=== PATIENT | female | born 1950 | race Caucasian/White ===

== ENCOUNTER → 2017-04-04 | Outpatient (CLI) | payer BC ==
[~2017-04-04] MED LIST: ALDACTONE 25MG25 M1 PO; ALENDRONATE SOD35 M1 PO; ASPIR-LOX325 MG PO; ASPIRIN 32325 MG/TAB PO; BYSTOLIC5 MG PO; CALCIUM1 CAP PO; CEFTIN500 MG PO; COMPLEXED POTAS99 MG PO; COUMADIN 1MG1 MG/TAB PO; COUMADIN10 MG PO; FISH OIL1000 MG PO; FOSAMAX 70MG TA70 MG PO; FOSAMAX PO; LEVOTHROID0.05 MG PO; LEVOXYL0.05 MG PO; LIPITOR80 MG PO; LISINOPRIL2.5 MG PO; LOVENOX100 MG/ML SC; LOW DOSE ASPIRI81 MG PO; MAX-EPA1000 MG PO; METOPROLOL50 MG PO; NAPROXEN D/R500 MG PO; NORCO 325 MG-51 TAB PO; PERCOCET 500 MG1 TAB PO; PLAVIX 75MG TAB75 MG PO; POTASSIUM1 PDS PO; TRIAMTERENE/HCT1 TAB PO; ZINC SULFATE 111 TAB PO; ZOFRAN 4MG T4 MG/TAB PO; [UNRECOGNIZED DRUG - OTHER]; [UNRECOGNIZED DRUG - OTHER] PO
== END ==
LOC: MC.RAD 03-22 07:00
DX: Z12.31 Encounter for screening mammogram for malignant neoplasm of breast (principal)

== ENCOUNTER → 2018-09-25 | Outpatient (CLI) | payer BC | LOC: MC.RAD 15:27 | DX: Z12.31 Encounter for screening mammogram for malignant neoplasm of breast (principal) ==

== ENCOUNTER 2019-12-24 11:37 | Emergency (ER) | payer BC ==
[~2019-12-24] VITALS: Ht 162.6 cm; Wt 72.7 kg
[2019-12-24 12:56] LABS: BASO % 0.4 % (0.0-2.0); EOS # 0.1 (0.0-0.7); EOS % 0.6 % (0-4.0); GRAN # 5.9 (1.4-6.5); HEMATOCRIT 43.1 % (37.0-47.0); HEMOGLOBIN 14.4 g/dl (12.5-16.0); LYMPH # 1.3 (1.2-3.4); LYMPH % 16.3 % (20.0-51.0); MEAN CELL VOLUME 98 fl (80.0-100.0); MEAN CORPUSCULAR HEMOGLOBIN 33 pg (27.0-31.0); MEAN CORPUSCULAR HGB CONC 33 g/dl (33.0-37.0); MEAN PLATELET VOLUME 8.7 fl (7.4-10.4); MONO # 0.8 (0.1-0.6); MONO % 10.1 % (1.7-9.3); PLATELET COUNT 225 K/mm3 (130-400); REDCELL DISTRIBUTION WIDTH-CV 12.2 % (11.5-14.5)
[2019-12-24 13:08] LABS: ALANINE AMINOTRANSFERASE 22 U/L (9-52); ALBUMIN 4.2 gm/dL (3.5-5.0); ALKALINE PHOSPHATASE 90 U/L (50-136); ANION GAP 8 mmol/L (7-16); AST,SGOT 25 U/L (15-37); BILIRUBIN,TOTAL 0.8 mg/dL (0.0-1.0); BLOOD UREA NITROGEN 19 mg/dL (7-17); C-REACTIVE PROTEIN 4.6 mg/dL (0.0-0.9); CALCIUM 9.6 mg/dL (8.4-10.2); CARBON DIOXIDE 24 mmol/L (22-30); CHLORIDE 105 mmol/L (98-107); CREATINE KINASE 65 U/L (30-135); CREATININE, serum 0.82 (0.52-1.25); GLUCOSE 96 mg/dL (74-106); POTASSIUM 4.5 mmol/L (3.4-5.0); SODIUM 138 mmol/L (137-145); TOTAL PROTEIN 7.3 gm/dL (6.4-8.2)
[2019-12-24 13:09] LABS: STREP SCREEN NEGATIVE
[2019-12-24 13:23] LABS: TROPONIN-I < 0.012 ng/mL (0.000-0.035)
[2019-12-24] MEDS ORDERED: AMOXICILLIN 8751 TAB PO (14:28)
[2019-12-24 14:36] LABS: COLLECTION METHOD CLEAN CATCH
[2019-12-24 14:46] LABS: INR 3.5 (0.8-3.0); PROTHROMBIN TIME 42.3 SECONDS (9.7-12.8)
[2019-12-24 14:49] LABS: MUCOUS Present /lpf; PH 5 (5-8); SQUAMOUS EPITHELIAL 0-2 /hpf; URINE APPEARANCE Clear; URINE BACTERIA Rare /hpf; URINE BILIRUBIN Negative (NEGATIVE); URINE BLOOD 1+ (NEGATIVE); URINE COLOR Amber; URINE GLUCOSE Negative (NEGATIVE); URINE KETONE Negative (NEGATIVE); URINE LEUKOCYTE ESTERASE Negative (NEGATIVE); URINE NITRATE Negative (NEGATIVE); URINE PROTEIN(semi-quant) 1+ (NEGATIVE); URINE UROBILINOGEN Negative (NEGATIVE)
[2019-12-24 15:02] VITALS: BP 129/81; PULSE 80; TEMP 98
== END 2019-12-24 15:05 | disposition home or self-care (01) ==
LOC: COL.ER 11:37
PROVIDERS: Emergency Medicine
DX: N39.0 Urinary tract infection, site not specified (principal); R05 Cough; I10 Essential (primary) hypertension; I25.10 Atherosclerotic heart disease of native coronary artery without angina pectoris; Z79.01 Long term (current) use of anticoagulants; Z79.82 Long term (current) use of aspirin; Z90.89 Acquired absence of other organs; Z95.5 Presence of coronary angioplasty implant and graft; Z86.718 Personal history of other venous thrombosis and embolism
CPT/HCPCS: J2405; J7030

== ENCOUNTER 2020-08-23 08:07 | Outpatient (RCR) | payer OTHER ==
[~2020-08-23 08:07] MED LIST changes: +AMOXICILLIN 8751 TAB PO
== END 2020-08-25 10:31 | disposition home or self-care (01) ==
LOC: WSOH 08:07
DX: S80.01XA Contusion of right knee, initial encounter (principal); S80.11XA Contusion of right lower leg, initial encounter; Z90.710 Acquired absence of both cervix and uterus; Z90.49 Acquired absence of other specified parts of digestive tract; K56.50 Intestinal adhesions [bands], unspecified as to partial versus complete obstruction; E78.00 Pure hypercholesterolemia, unspecified; E03.9 Hypothyroidism, unspecified; Y99.0 Civilian activity done for income or pay

== ENCOUNTER → 2020-11-03 | Outpatient (CLI) | payer BC | LOC: MC.RAD 13:50 | DX: N64.4 Mastodynia (principal) ==

== ENCOUNTER → 2024-05-07 | Outpatient (CLI) | payer MEDICARE | LOC: MC.RAD 13:43 | DX: Z12.31 Encounter for screening mammogram for malignant neoplasm of breast (principal) ==